=== PATIENT | female | born 1965 | race Caucasian/White ===

== ENCOUNTER → 2017-06-12 | Outpatient (CLI) | payer MEDICAID ==
[~2017-06-12] MED LIST: AMOXICILLIN 50500 MG PO
--- NOTE | 2017-06-12 16:02 | RADIOLOGY REPORT PS360 ---
US RUQ-(ABD LTD)1ORGAN/QUAD/FU HISTORY: RUQ PAIN ORDERING PHYSICIAN: Ramos Claire MD PATIENT AGE: 51 years COMPARISON: None FINDINGS: PANCREAS:Unremarkable. No obvious mass or abnormal fluid collection. No ductal dilatation LIVER:No focal liver lesions demonstrated. Homogeneous echogenicity. No intrahepatic biliary ductal dilatation evident RIGHT KIDNEY:Unremarkable. Normal size and echogenicity. No hydronephrosis GALLBLADDER:Small and contracted. The wall mildly thickened. No obvious stones or pericholecystic fluid. Common bile duct is normal at 3 mm. IMPRESSION: Contracted gallbladder with mildly thickened wall otherwise negative right upper quadrant ultrasound
== END ==
LOC: RAD 06-10 09:00
DX: R10.11 Right upper quadrant pain (principal)